=== PATIENT | female | born 1985 | race Caucasian/White ===

== ENCOUNTER 2018-02-25 12:18 | Inpatient (IN) ==
[2018-02-25] MEDS ORDERED: Sod Chloride 0.9% Inj 1,000 ML IV.CONT SCH (21:00)
[2018-02-25] MEDS: Dextrose 5%/NaCl 0.45% Inj 1,000 ML IV.CONT SCH (22:38)
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
[2018-02-26 01:29] LABS: CKMB Percent 2.8 % (0.0-4.0); Creatine Kinase MB 27.7 ng/mL (0.5-3.6)
[2018-02-26] MEDS: Dextrose 5%/NaCl 0.45% Inj 1,000 ML IV.CONT SCH (10:23)
--- NOTE | 2018-02-26 10:47 | P.PN ---
Subjective Interval history: Follow-up for encephalopathy, overdose, rhabdomyolysis, depression with suicidal ideations. The patient is sleeping upon my arrival, easily awakens. She is oriented to person, place, month/year. She states she was brought here by her mom because she was having depressing thoughts. She admits to having some suicidal thoughts and she states "I do not know" when she is asked if she is still having those thoughts. She denies any other medical complaints including no fever/chills, headache, lightheadedness, dizziness, chest pain, palpitations, shortness breath, or abdominal complaints. Physical Exam Vital signs: Vital Signs 02/25/18 20:00 02/26/18 00:00 02/26/18 04:00 Temperature 97.2 F L 97.4 F L 97.3 F L Pulse Rate 81 80 54 L Respiratory Rate 16 18 18 Blood Pressure 124/57 L 116/68 106/69 Pulse Oximetry 99 100 99 02/26/18 08:00 Temperature 97.6 F Pulse Rate 76 Respiratory Rate 20 Blood Pressure 118/72 Pulse Oximetry 98 Intake & Output 02/25/18 02/26/18 02/26/18 18:59 06:59 18:59 Intake Total 1000 / 1000 0 / 0 Balance 1000 / 1000 0 / 0 Weight 63.1 kg Intake: IV 1000 / 1000 D5W/1/2 NS Inj 1,000 ML @ 200 1000 / 1000 mls/hr IV.CONT .Q5H [facility] Rx#: [id number] Oral 0 / 0 Other: # Urine Diapers 0 # Bowel Movements 0 Weight On Admission 63.1 kg Narrative: GENERAL: Well-nourished, well-developed young female patient in [facility]. Drowsy. SKIN: Warm and dry. No rash. HEENT: Normocephalic. Atraumatic. Pupils equal and round. Mucous membranes pink and moist. CARDIOVASCULAR: Regular rate and rhythm. No murmur appreciated. RESPIRATORY: No accessory muscle use. Clear to auscultation. Breath sounds equal bilaterally. GASTROINTESTINAL: Abdomen soft, non-tender, nondistended. Normoactive bowel sounds x4. MUSCULOSKELETAL: No obvious deformities. Extremities without clubbing, cyanosis , or edema. NEUROLOGICAL: Awake and alert. No obvious cranial nerve deficits. Motor grossly within normal limits. Moving all extremities spontaneously. Normal speech. Results - Labs CBC & Chem 7: 02/26/18 12:15 02/26/18 12:15 Laboratory Results - last 24 hr 02/25/18 02/25/18 02/25/18 21:49 22:33 23:41 POC Glucose 68 170 H Total Creatine Kinase 987 H CK-MB (CK-2) 27.7 H CK-MB (CK-2) % 2.8 Assessment and Plan - Plan 32-year-old female with a history of polysubstance abuse, HIV, and Hepatitis C presented to the ED with suspected drug overdose with suicidal ideations. Toxic encephalopathy: secondary to drug overdose. Possible intentional due to suicidal thoughts. -Drug screen positive for opiates, amphetamines, cocaine and cannabinoids -Neuro checks -Monitor on telemetry -Supportive treatment with IVF hydration -Patient AAO 4 today, encephalopathy resolved. Depression/Suicidal Ideations: acute -continue sitter -consult psychiatry Rhabdomyolysis: CPK 987, secondary to drug use -Give IVF for hydration -Repeat CPK 520 -encourage to continue oral hydration Hypoglycemia, glucose -likely secondary to poor oral intake, initially given IVF with D5 -advance diet to regular -Accu checks -hypoglycemia resolved Polysubstance abuse -Counseled on cessation Transaminitis: Patient with reported history of hepatitis -Check hepatitis panel -Avoid hepatotoxins -Monitor LFTs DVT prophylaxis: SCDs Discharge Planning: Discharge pending further clinical improvement and psychiatry evaluation.
[2018-02-26 12:36] LABS: Baso % (Auto) 0.8 % (0.0-2.0); Eos % (Auto) 1.1 % (0.0-4.0); Hematocrit 39.1 % (35.0-46.0); Lymph # (Auto) 0.7 th/mm3 (1.0-4.8); Lymph % (Auto) 19.3 % (9.0-44.0); Mean Corpuscular HGB Conc 33.2 % (32.0-36.0); Mean Corpuscular Volume 87.5 fL (80.0-100.0); Mean Platelet Volume 8.1 fL (7.0-11.0); Mono # (Auto) 0.2 th/mm3 (0.0-0.9); Mono % (Auto) 5.4 % (0.0-8.0); Neut # (Auto) 2.8 th/mm3 (1.8-7.7); Neut % (Auto) 73.4 % (16.0-70.0); Platelet Count 170 th/mm3 (150-450); Red Blood Count 4.47 mil/mm3 (4.00-5.30); Red Cell Distribution Width 15.2 % (11.6-17.2); White Blood Count 3.8 th/mm3 (4.0-11.0)
[2018-02-26 12:49] LABS: Alanine Aminotransferase 86 U/L (10-53); Albumin 2.8 g/dL (3.4-5.0); Anion Gap 7 meq/L (5-15); Aspartate Aminotransferase 97 U/L (15-37); Blood Urea Nitrogen 10 mg/dL (7-18); Calcium 7.7 mg/dL (8.5-10.1); Chloride 110 meq/L (98-107); Glomerular Filtration Rate Greater Than 89 mL/min (>89); Glucose,Random 112 mg/dL (74-106); Potassium 3.5 meq/L (3.5-5.1); Sodium 142 meq/L (136-145)
[2018-02-26 12:51] LABS: Alkaline Phosphatase 56 U/L (45-117); Creatine Kinase 520 U/L (26-192); Total Protein 5.9 g/dL (6.4-8.2)
[2018-02-26 13:09] LABS: CKMB Percent 2.9 % (0.0-4.0); Creatine Kinase MB 15.1 ng/mL (0.5-3.6)
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
[2018-02-26] MEDS: Sod Chloride 0.9% Inj 1,000 ML IV.CONT SCH (15:51)
[2018-02-27 00:31] VITALS: TEMP 98.2
[2018-02-27] MEDS: Sod Chloride 0.9% Inj 1,000 ML IV.CONT SCH (01:46)
[2018-02-27 05:30] VITALS: BP 110/67; RESP 18; O2SAT 98
[2018-02-27 07:48] LABS: Baso % (Auto) 0.3 % (0.0-2.0); Eos % (Auto) 1.1 % (0.0-4.0); Hematocrit 37.3 % (35.0-46.0); Hemoglobin 12.5 gm/dL (11.6-15.3); Lymph # (Auto) 1.1 th/mm3 (1.0-4.8); Lymph % (Auto) 30.4 % (9.0-44.0); Mean Corpuscular HGB Conc 33.6 % (32.0-36.0); Mean Corpuscular Hemoglobin 28.9 pg (27.0-34.0); Mean Platelet Volume 8.6 fL (7.0-11.0); Mono # (Auto) 0.2 th/mm3 (0.0-0.9); Mono % (Auto) 7.1 % (0.0-8.0); Neut # (Auto) 2.1 th/mm3 (1.8-7.7); Neut % (Auto) 61.1 % (16.0-70.0); Platelet Count 166 th/mm3 (150-450); Red Blood Count 4.34 mil/mm3 (4.00-5.30); Red Cell Distribution Width 15.1 % (11.6-17.2); White Blood Count 3.5 th/mm3 (4.0-11.0)
[2018-02-27 08:14] LABS: Albumin 2.8 g/dL (3.4-5.0); Anion Gap 7 meq/L (5-15); Aspartate Aminotransferase 79 U/L (15-37); Blood Urea Nitrogen 6 mg/dL (7-18); Carbon Dioxide 27.1 meq/L (21.0-32.0); Chloride 109 meq/L (98-107); Glomerular Filtration Rate Greater Than 89 mL/min (>89); Glucose,Random 89 mg/dL (74-106); Potassium 3.3 meq/L (3.5-5.1); Sodium 143 meq/L (136-145)
[2018-02-27 08:17] LABS: Alanine Aminotransferase 87 U/L (10-53); Alkaline Phosphatase 58 U/L (45-117); Creatine Kinase 212 U/L (26-192)
[2018-02-27 08:32] LABS: CKMB Percent 2.5 % (0.0-4.0); Creatine Kinase MB 5.3 ng/mL (0.5-3.6)
--- NOTE | 2018-02-27 11:34 | P.PNIM ---
Subjective Interval history: Denies any pain, including myalgia. No nausea or vomiting. Denies any chest pain or shortness of breath. Afebrile. Physical Exam Vital signs: Vital Signs 02/26/18 12:00 02/26/18 16:00 02/26/18 18:00 Temperature 97.6 F 98.0 F 98.0 F Pulse Rate 88 95 H 95 H Respiratory Rate 20 20 20 Blood Pressure 124/83 134/92 H 134/92 H Pulse Oximetry 98 99 99 02/26/18 20:00 02/27/18 00:00 02/27/18 04:00 Temperature 98.1 F 98.2 F 98.2 F Pulse Rate 96 H 73 93 H Respiratory Rate 16 20 18 Blood Pressure 136/88 131/81 110/67 Pulse Oximetry 98 97 98 Intake & Output 02/26/18 02/27/18 02/27/18 18:59 06:59 18:59 Intake Total 0 / 0 1140 / 1140 Balance 0 / 0 1140 / 1140 Weight 65.3 kg Intake: IV 900 / 900 NS Inj 1,000 ML @ 100 mls/hr IV 900 / 900 .CONT .Q10H DENIA Rx#:[id number] Oral 0 / 0 240 / 240 Other: # Voids 4 3 # Urine Diapers 0 # Bowel Movements 0 0 Results - Labs CBC & Chem 7: 02/27/18 06:18 02/27/18 06:18 Laboratory Results - last 24 hr 02/26/18 02/26/18 02/26/18 12:15 12:15 13:03 WBC 3.8 L D RBC 4.47 Hgb 13.0 Hct 39.1 MCV 87.5 MCH 29.0 MCHC 33.2 RDW 15.2 Plt Count 170 MPV 8.1 Neut % (Auto) 73.4 H Lymph % (Auto) 19.3 [place] % (Auto) 5.4 Eos % (Auto) 1.1 Baso % (Auto) 0.8 Neut # (Auto) 2.8 Lymph # (Auto) 0.7 L [place] # (Auto) 0.2 Eos # (Auto) 0.0 Baso # (Auto) 0.0 WBC Differential . Differential Comment Auto diff final Sodium 142 Potassium 3.5 Chloride 110 H Carbon Dioxide 25.0 Anion Gap 7 BUN 10 Creatinine 0.65 Estimated GFR Greater than 89 POC Glucose 119 H Random Glucose 112 H Calcium 7.7 L D Total Bilirubin 1.2 H AST 97 H ALT 86 H Alkaline Phosphatase 56 Total Creatine Kinase 520 H CK-MB (CK-2) 15.1 H CK-MB (CK-2) % 2.9 Total Protein 5.9 L D Albumin 2.8 L D 02/26/18 02/26/18 02/27/18 16:59 19:34 06:18 WBC RBC Hgb Hct MCV MCH MCHC RDW Plt Count MPV Neut % (Auto) Lymph % (Auto) [place] % (Auto) Eos % (Auto) Baso % (Auto) Neut # (Auto) Lymph # (Auto) [place] # (Auto) Eos # (Auto) Baso # (Auto) WBC Differential Differential Comment Sodium 143 Potassium 3.3 L Chloride 109 H Carbon Dioxide 27.1 Anion Gap 7 BUN 6 L Creatinine 0.60 Estimated GFR Greater than 89 POC Glucose 149 H 164 H Random Glucose 89 Calcium 8.0 L Total Bilirubin 0.5 AST 79 H ALT 87 H Alkaline Phosphatase 58 Total Creatine Kinase 212 H CK-MB (CK-2) 5.3 H CK-MB (CK-2) % 2.5 Total Protein 6.0 L Albumin 2.8 L 02/27/18 02/27/18 06:18 07:32 WBC 3.5 L RBC 4.34 Hgb 12.5 Hct 37.3 MCV 86.0 MCH 28.9 MCHC 33.6 RDW 15.1 Plt Count 166 MPV 8.6 Neut % (Auto) 61.1 Lymph % (Auto) 30.4 [place] % (Auto) 7.1 Eos % (Auto) 1.1 Baso % (Auto) 0.3 Neut # (Auto) 2.1 Lymph # (Auto) 1.1 [place] # (Auto) 0.2 Eos # (Auto) 0.0 Baso # (Auto) 0.0 WBC Differential . Differential Comment Auto diff final Sodium Potassium Chloride Carbon Dioxide Anion Gap BUN Creatinine Estimated GFR POC Glucose 94 Random Glucose Calcium Total Bilirubin AST ALT Alkaline Phosphatase Total Creatine Kinase CK-MB (CK-2) CK-MB (CK-2) % Total Protein Albumin Assessment and Plan - Plan 32-year-old female with a history of polysubstance abuse, HIV, and Hepatitis C presented to the ED with suspected drug overdose with suicidal ideations. Toxic encephalopathy: secondary to drug overdose. Possible intentional due to suicidal thoughts. -Drug screen positive for opiates, amphetamines, cocaine and cannabinoids -Neuro checks -Monitor on telemetry -Patient AAO 4 today, encephalopathy resolved. Depression/Suicidal Ideations: acute -continue sitter -Psychiatry agreed to take patient as inpatient. Rhabdomyolysis: CPK 987, secondary to drug use -Status post IVF, CK down to 212. Creatinine stable. LFTs stable. Hypoglycemia, glucose -likely secondary to poor oral intake, initially given IVF with D5 -advance diet to regular -Accu checks -hypoglycemia resolved Polysubstance abuse -Counseled on cessation Transaminitis: Patient with reported history of hepatitis -Negative hepatitis panel -Avoid hepatotoxins, LFT stable, secondary to rhabdomyolysis. Should improve in the next few days. DVT prophylaxis: SCDs Discharge Planning: Discharge to psychiatry today
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
[2018-02-27 13:36] VITALS: PULSE 56
[2018-02-27 20:41] LABS: Hepatitis A IgM Antibody Nonreactive (Nonreactive); Hepatitits B Surface Antigen Nonreactive (Nonreactive)
== END 2018-02-27 14:55 ==
LOC: NEDDLT 12:18 → N04 19:30
PROVIDERS: ADMIT Hospitalist; ATTEND Hospitalist

== ENCOUNTER 2018-02-27 12:34 | Inpatient (IN) ==
[2018-02-27] MEDS ORDERED: LORazepam 1 MG Tablet PO PRN (15:45)
[2018-02-27] MEDS ORDERED: Haloperidol Inj 5 MG/ML Ampul IV.PUSH PRN (15:45)
[2018-02-27] MEDS ORDERED: Bisacodyl 10 MG Supp RECTAL PRN (15:45)
[2018-02-27] MEDS ORDERED: Aluminum/Magnesium/Simethacone Susp 30 ML UDC PO PRN (15:45)
[2018-02-27] MEDS: Senna/Docusate Sodium 8.6/50 MG Tablet PO SCH (21:13)
[2018-02-28 08:34] LABS: Anion Gap 6 meq/L (5-15); Blood Urea Nitrogen 10 mg/dL (7-18); Calcium 8.4 mg/dL (8.5-10.1); Carbon Dioxide 28.2 meq/L (21.0-32.0); Chloride 109 meq/L (98-107); Cholesterol 68 mg/dL (120-200); Glomerular Filtration Rate Greater Than 89 mL/min (>89); Glucose,Random 94 mg/dL (74-106); Sodium 143 meq/L (136-145); Triglycerides 68 mg/dL (42-150)
[2018-02-28 08:36] LABS: Chol/HDL Ratio 1.66 Ratio; HDL Cholesterol 40.9 mg/dL (40.0-60.0); LDL Cholesterol,Calculated 14 mg/dL (0-99)
[2018-02-28] MEDS: Senna/Docusate Sodium 8.6/50 MG Tablet PO SCH (09:33)
[2018-02-28] MEDS ORDERED: Bisacodyl 10 MG Supp RECTAL PRN (13:35)
[2018-02-28] MEDS ORDERED: Aluminum/Magnesium/Simethacone Susp 30 ML UDC PO PRN (13:35)
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
[2018-02-28 16:45] LABS: Hemoglobin A1c 5.5 % (4.3-6.0)
[2018-03-01] MEDS: Senna/Docusate Sodium 8.6/50 MG Tablet PO SCH ×2 (10:10→21:31)
--- NOTE | 2018-03-01 19:57 | P.PNPSY ---
Subjective Remarks: Reviewed electronic medical records and discussed case with staff. Follow-up was conducted in patient's room with nurse present. Patient ports that she has been sleeping okay and her appetite has been good. She is asking whether she will be started on HIV meds. Her nurse states that she is been perseverating on this all day. At one point when told that they typically start the medications at [facility] she stated that she wanted to sign an ROR. However, she is agreed to stay till Saturday to talk to her attending psychiatrist. Mental Status Examination Appearance: Disheveled Consciousness: Alert Orientation: Person, Place, Date/Time, Situation Motor Activity: Normal gait Speech: Unremarkable Language: Adequate Fund of Knowledge: Adequate Attention and Concentration: Adequate Memory: Impaired (Mildly) Mood: Irritable (Mildly), Other (Somewhat restricted and dysphoric) Affect: Other (Slight increased range and intensity) Thought Process & Associations: Intact Thought Content: Appropriate Hallucination Type: None Delusion Type: None Suicidal Ideation: No Suicidal Plan: No Suicidal Intention: No Homicidal Ideation: No Homicidal Plan: No Homicidal Intention: No Insight: Poor Judgment: Poor Assessment and Plan - Assessment (1) Adjustment disorder with mixed disturbance of emotions and conduct Code(s): F43.25 - Adjustment disorder with mixed disturbance of emotions and conduct Status: Acute - Plan Plan: Patient will be reevaluated Saturday by the attending psychiatrist. Continue with current treatment plan. Justification for Continued Inpatient Stay: Moving this patient to a less restrictive environment would likely result in decompensation. Request Healthcare Surrogate/Guardian Advocate?: No
[2018-03-02] MEDS: Senna/Docusate Sodium 8.6/50 MG Tablet PO SCH ×2 (09:01→22:11)
--- NOTE | 2018-03-02 14:02 | P.PNPSY ---
Subjective Remarks: Reviewed electronic medical records and discussed case with staff. Follow-up was conducted in patient's room. She was found lying on her bed awake, alert, and oriented 4. She reports that she slept well and her appetite's been good. She denies any withdrawal symptoms. When asked if she wanted to be discharged today she responded no that she would like to speak with Dr. Oneal further tomorrow. Mental Status Examination Appearance: Disheveled Consciousness: Alert Orientation: Person, Place, Date/Time, Situation Motor Activity: Normal gait Speech: Unremarkable Language: Adequate Fund of Knowledge: Adequate Attention and Concentration: Adequate Memory: Impaired (Mildly) Mood: Irritable (Mildly), Other (Somewhat restricted and dysphoric) Affect: Other (Slight increased range and intensity) Thought Process & Associations: Intact Thought Content: Appropriate Hallucination Type: None Delusion Type: None Suicidal Ideation: No Suicidal Plan: No Suicidal Intention: No Homicidal Ideation: No Homicidal Plan: No Homicidal Intention: No Insight: Poor Judgment: Poor Assessment and Plan - Assessment (1) Adjustment disorder with mixed disturbance of emotions and conduct Code(s): F43.25 - Adjustment disorder with mixed disturbance of emotions and conduct Status: Acute - Plan Plan: Patient will be reevaluated tomorrow by the attending psychiatrist. Continue with current treatment plan. Justification for Continued Inpatient Stay: Moving this patient to a less restrictive environment would likely result in decompensation. Request Healthcare Surrogate/Guardian Advocate?: No
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
== END 2018-03-03 11:10 | disposition short-term general hospital (02) ==
LOC: H260 14:59
PROVIDERS: ADMIT Psychiatry & Neurology Psychiatry; ATTEND Psychiatry & Neurology Psychiatry
CPT/HCPCS: Q0163